=== PATIENT | female | born 1980 | race Caucasian/White ===

== ENCOUNTER → 2023-08-20 13:15 | Outpatient (REF) | payer BC, SELFPAY | LOC: WDC 13:15 | PROVIDERS: ATTENDING PHYSICIAN Nurse Practitioner Family | DX: Z12.31 Encounter for screening mammogram for malignant neoplasm of breast (principal) | CPT/HCPCS: 77063; 77067 ==

== ENCOUNTER → 2024-09-04 19:37 | Outpatient (REF) | payer BC, SELFPAY | LOC: WDC 19:37 | PROVIDERS: ATTENDING PHYSICIAN Nurse Practitioner Family; FAMILY PHYSICIAN Internal Medicine | DX: Z12.31 Encounter for screening mammogram for malignant neoplasm of breast (principal) | CPT/HCPCS: 77063; 77067 ==

== ENCOUNTER → 2024-11-06 16:32 | Outpatient (REF) | payer BC, SELFPAY | LOC: RAD 16:32 | PROVIDERS: ATTENDING PHYSICIAN Nurse Practitioner Family; FAMILY PHYSICIAN Internal Medicine | DX: R10.2 Pelvic and perineal pain (principal) | CPT/HCPCS: 76830; 76856 ==

== ENCOUNTER → 2025-03-05 07:59 | Outpatient (REF) | payer BC, SELFPAY | LOC: RAD 07:59 | PROVIDERS: ATTENDING PHYSICIAN Internal Medicine | DX: E01.0 Iodine-deficiency related diffuse (endemic) goiter (principal) | CPT/HCPCS: 76536 ==

== ENCOUNTER → 2025-04-04 09:36 | Outpatient (REF) | payer BC, SELFPAY ==
[2025-04-04 09:52] VITALS: BP 136/83; BP_SYST 80
== END ==
LOC: RADI 09:36
PROVIDERS: ATTENDING PHYSICIAN Internal Medicine
DX: E04.1 Nontoxic single thyroid nodule (principal)
CPT/HCPCS: 10005; 88173

== ENCOUNTER 2025-06-26 07:07 | Day surgery (SDC) | payer BC, SELFPAY ==
[2025-06-04 11:47] LABS: Hematocrit 42.4 % (37.0-47.0); Hemoglobin 13.9 g/dL (12.0-16.0); Mean Corp Hgb Conc. 32.8 g/dL (33.0-37.0); Mean Corpuscular Volume 84.5 fL (81.0-99.0); Platelet Count 342 10^3/uL (130-400); Red Cell Dist. Width 13.5 % (11.5-14.5)
[2025-06-04 11:57] LABS: INR 0.98; PT 13.3 Sec (11.4-14.6)
[2025-06-04 11:58] LABS: APTT 29.6 Sec (23.4-35.0)
[2025-06-04 12:58] LABS: ALT (SGPT) 25 U/L (0-35); AST (SGOT) 23 U/L (14-36); Albumin 4.4 g/dl (3.5-5.0); Alkaline Phosphatase 69 U/L (38-126); Blood Urea Nitrogen 15 mg/dl (7-17); Calcium 9.1 mg/dl (8.4-10.2); Carbon Dioxide 27 mmol/L (22-30); Chloride 104 mmol/L (98-107); Glucose 96 mg/dl (70-99); Potassium 4.6 mmol/L (3.5-5.1); Sodium 138 mmol/L (135-145); Total Protein 7.5 g/dl (6.3-8.2); eGFR > 60.00
[2025-06-04 14:01] VITALS: BMI 39.8
[2025-06-26] VITALS (10 sets, daily range): BP systolic 115–129; BP diastolic 65–84; BMI 39.8
[2025-06-26] MEDS: NEURONTIN 300 MG PO (11:19)
[2025-06-26] MEDS: NORMOSOL-R/PLASMALYTE-A 1000 IV (11:19)
[2025-06-26] MEDS: TYLENOL 1000 MG PO (11:19)
[2025-06-26] MEDS: HEPARIN 5000 UNITS SC (13:55)
--- NOTE | 2025-06-26 16:09 | OR.RPT ---
Operative Report
Operative Report
DATE OF OPERATION: June 26, 2025
PREOPERATIVE DIAGNOSIS: Thyroid Nodule - E041
POSTOPERATIVE DIAGNOSIS: Same
SURGEON: Sammy Schafer M.D.
OPERATION: Left Thyroidectomy and Limited Neck Dissection � [id number]
Autotransplant of the left superior parathyroid gland - [id number]
ANESTHESIA: GET
ESTIMATED BLOOD LOSS: 5 cc
DRAINS: None
SPECIMEN: Left thyroid lobe and isthmus, and left level paratracheal tissue
FINDINGS: Left thyroid nodule
COMPLICATIONS: None
PROCEDURE:
The patient was taken to the operating room and placed in the usual supine position. After adequate general endotracheal anesthesia was established, the patient�s neck was extended, prepped, and draped in the typical sterile fashion. A 5 cm
transcervical incision was made two fingerbreadths above the sternal notch. The skin incision was made with the #15 blade, which was taken through the skin into the subcutaneous tissue. The underlying platysma muscle was divided, and subplatysmal
flaps were created superiorly to the thyroid cartilage and inferiorly to the sternal notch. Strap muscles were identified and at the midline.
Attention was turned to the patient�s left thyroid lobe. The left thyroid lobe was mobilized medially. During this process, the left middle thyroid vein and inferior thyroid artery were dissected and ligated with Ligasure. Next, the left superior
pole was taken down by dissecting and transecting the superior pole vessels with a Ligasure. The left thyroid lobe was mobilized medially.
During this process, the left recurrent laryngeal nerve was identified and preserved throughout its entire course. The left superior parathyroid gland was identified and preserved. The left thyroid lobe with isthmus was resected from the trachea and
sent to the pathology department.
At this time, the left level 6 neck dissection was performed. The tissue between the left carotid artery to the trachea into the anterior mediastinum was carefully dissected. The previously identified recurrent laryngeal nerve and parathyroid gland
were preserved. The tissue was removed and sent to the pathology department.
After achieving adequate hemostasis, the previously identified left superior parathyroid gland was noted to be ischemic. Therefore, the gland was removed, minced, and autotransplanted in the left SCM muscle.
The strap muscle was approximated with #3-0 Vicryl in a running fashion, and the platysma muscles were reapproximated with #3-0 Vicryl in an interrupted manner. The skin was then closed with #4-0 Monocryl in a running subcuticular technique.
Steri-strips and sterile dressings were applied. The patient tolerated the procedure well. The final instrument, needle, and sponge counts were correct.
[2025-06-26] MEDS: ROXICODONE 5 MG PO (17:26)
== END 2025-06-26 17:50 | disposition home or self-care (01) ==
LOC: SDS 07:07
PROVIDERS: ATTENDING PHYSICIAN Surgery; FAMILY PHYSICIAN Internal Medicine
DX: C73 Malignant neoplasm of thyroid gland (principal); E06.3 Autoimmune thyroiditis
CPT/HCPCS: 60252; 60220; 60512; 36415; 80053; 85027; 85610; 85730; 88307; 93005